=== PATIENT | female | born 1995 | race Caucasian/White ===

== ENCOUNTER 2020-05-16 08:37 | Emergency (ER) | payer OTHER ==
--- NOTE | 2020-05-16 08:51 | ED Physician Documentation ---
PD HPI FEMALE - Stated complaint Stated Complaint: FEMALE - History obtained from History obtained from: Patient - History of Present Illness Timing - onset: How many weeks ago (had some dysuria and reported vaginal discharge couple weeks ago and was treated at [facility] with Rocephin and 1 g Zithromax. Had STD testing that resulted subsequently negative. Has had some dysuria at times. Still some vag discharge at times. Yest/today noted some hematuria and still dysuria) Timing - duration: Weeks (2 weeks of some symptoms, with hematuria and dysuria worse since yesterday.) Timing - details: Gradual onset, Still present, Waxing and waning Associated symptoms: Vaginal discharge, Dysuria, Hematuria. No: Fever, Vaginal pain, Genital sore/lesion Contributing factors: Exposed to STD (she says her partner had reported having HSV2, but pt without sores and had normal pelvic exam at [place] a week ago (with some discharge).) Similar symptoms before: Has not had sx before Recently seen: Clinic (Seen for initial symptoms and had UA and STD tests. Then seen repeat at [place] with pelvic exam but no mention of discharge per pt.) Review of Systems Constitutional: denies: Fever, Chills Nose: denies: Rhinorrhea / runny nose, Congestion Throat: denies: Sore throat Respiratory: denies: Cough GI: denies: Abdominal Pain, Nausea, Vomiting, Constipation, Diarrhea : reports: Dysuria, Frequency, Hematuria, Discharge. denies: Vaginal bleeding Skin: denies: Rash PD PAST MEDICAL HISTORY - Past Medical History Past Medical History: No - Present Medications Home Medications: Ambulatory Orders Medication Instructions Recorded Confirmed Fluconazole [Diflucan] 150 mg PO Q3D #2 tablet 05/16/20 metroNIDAZOLE [Flagyl] 500 mg PO BID #15 tablet 05/16/20 - Allergies Allergies/Adverse Reactions: Allergies Allergy/AdvReac Type Severity Reaction Status Date / Time No Known Drug Allergies Allergy Verified 05/16/20 08:52 PD ED PE NORMAL - Vitals Vital signs reviewed: Yes - General General: Alert and oriented X 3, No acute distress, Well developed/nourished - Abdomen Abdomen: Soft, Non tender - Female Female : Deferred, Other (she had pelvic exam last week, so unlikely to find other problems that could not be tested with vaginal self-sweab. ) - Back Back: No CVA TTP Results - Vitals Vitals: Vital Signs - 24 hr 05/16/20 05/16/20 08:49 10:25 Temperature 36.7 C 35.9 C L Heart Rate 74 68 Respiratory 16 16 Rate Blood Pressure 122/70 107/68 O2 Saturation 99 98 Oxygen O2 Source Room air - Labs Labs: Laboratory Tests 05/16/20 05/16/20 09:10 10:00 Urine Color YELLOW Urine Clarity CLEAR Urine pH 7.5 Ur Specific Delta 1.010 Urine Protein NEGATIVE Urine Glucose (UA) NEGATIVE Urine Ketones NEGATIVE Urine Occult Blood LARGE H Urine Nitrite NEGATIVE Urine Bilirubin NEGATIVE Urine Urobilinogen 0.2 (NORMAL) Ur Leukocyte Esterase MODERATE H Urine RBC 0-5 Urine WBC 6-10 H Ur Squamous Epith Cells FEW Squamous Urine Bacteria Few Ur Microscopic Review INDICATED Urine Culture Comments INDICATED Urine HCG, Qual NEGATIVE C. glabrata (PCR) NEGATIVE C. krusei (PCR) NEGATIVE Alecia species DNA NEGATIVE T. vaginalis (PCR) NEGATIVE Bact Vaginosis (PCR) POSITIVE A PD MEDICAL DECISION MAKING - ED course Complexity details: considered differential (can check UA but also consider BV, as was tested for STD and states also BV with negative tests. ), d/w patient Departure - Departure Disposition: 01 Home, Self Care Clinical Impression: Dysuria Condition: Stable Instructions: ED Dysuria Uncertain Cause Follow-Up: [facility] [Provider Group] Prescriptions: Fluconazole [Diflucan] 150 mg PO Q3D #2 tablet metroNIDAZOLE [Flagyl] 500 mg PO BID #15 tablet Comments: Urine test has some white cells which may indicate infection. However it is not necessarily convincing for a bladder infection per se. This may relate to some vaginitis instead. Both the test for the bacterial vaginosis as well as the urine culture should result in the next 1 to 2 days. This can help further guide treatment. Meanwhile we will treat primarily for bacterial vaginosis with metronidazole twice daily for a week. We can also add Diflucan every 3 days for 2 more doses for possible yeast as well. Recheck if not improving well over the next several days. We will call if we need to change antibiotic choice based on the cultures. Discharge Date/Time: 05/16/20 10:26
[2020-05-16 09:15] LABS: BILIRUBIN,URINE NEGATIVE (NEGATIVE); GLUCOSE, URINE (UA) NEGATIVE (NEGATIVE); KETONES,URINE (UA) NEGATIVE (NEGATIVE); LEUKOCYTE ESTERASE, URINE MODERATE (NEGATIVE); NITRITE,URINE NEGATIVE (NEGATIVE); OCCULT BLOOD,URINE LARGE (NEGATIVE); PH,URINE 7.5 PH (5.0-7.5); PROTEIN,URINE NEGATIVE (NEGATIVE); UROBILINOGEN,URINE 0.2 (NORMAL) E.U./dL (NORMAL)
[2020-05-16 09:16] LABS: CLARITY,URINE CLEAR (CLEAR)
[2020-05-16 09:19] LABS: HCG UR QUAL NEGATIVE
[2020-05-16 09:42] LABS: BACTERIA,URINE Few /HPF (None Seen); RBC,URINE 0-5 /HPF (0-5); SQUAMOUS EPITHELIAL CELL,UR FEW Squamous (<= Few)
[2020-05-16] MEDS ORDERED: FLUCONAZOLE 100 MG TABLET PO STA (09:50)
[2020-05-16] MEDS ORDERED: metroNIDAZOLE 250 MG TABLET PO STA (09:50)
[2020-05-16 10:27] VITALS: BP 107/68
[2020-05-16 15:07] LABS: CANDIDA GROUP DNA NEGATIVE (NEGATIVE); CANDIDA KRUSEI DNA NEGATIVE (NEGATIVE); TRICHOMONAS VAGINALIS DNA NEGATIVE (NEGATIVE)
== END 2020-05-16 10:26 | disposition home or self-care (01) ==
LOC: ED 08:37
DX: R30.0 Dysuria (principal); N89.8 Other specified noninflammatory disorders of vagina; Z20.2 Contact with and (suspected) exposure to infections with a predominantly sexual mode of transmission
CPT/HCPCS: 81001; 81025; 87086; 87481; 87661; 87801; 99283; A9270; 81003